=== PATIENT | male | born 1980 | race Caucasian/White ===

== ENCOUNTER 2023-01-14 13:57 | Emergency (ER) | payer OTHER ==
[~2023-01-14] VITALS: Ht 170.2 cm; Wt 110.7 kg
[~2023-01-14 13:57] MED LIST: AMOX500 PO; AZIT500 PO; CEPH500 PO; CYCL10 PO; HYDACE5 PO; INCARCERATION; NAPR500 PO; PENVK500 PO; RXCYCL10 PO; RXHYDACE PO; RXLORA1 PO
[2023-01-14 14:22] VITALS: BP 155/93
== END 2023-01-14 14:27 | disposition home or self-care (01) ==
LOC: ER 13:57
DX: S81.811A Laceration without foreign body, right lower leg, initial encounter (principal); Z88.0 Allergy status to penicillin; V09.20XA Pedestrian injured in traffic accident involving unspecified motor vehicles, initial encounter
CPT/HCPCS: 99282

== ENCOUNTER 2024-02-27 19:14 | Emergency (ER) | payer OTHER ==
[~2024-02-27] VITALS: Ht 170.2 cm; Wt 104.3 kg
[2024-02-27 19:20] VITALS: BP 153/99
== END 2024-02-27 20:57 | disposition home or self-care (01) ==
LOC: ER 19:14
DX: M24.411 Recurrent dislocation, right shoulder (principal); Z88.0 Allergy status to penicillin
CPT/HCPCS: 73030; 99283-25